=== PATIENT | female | born 1995 | race Caucasian/White ===

== ENCOUNTER 2018-01-04 00:38 | Day surgery (SDC) | payer OTHER, BC ==
[~2018-01-04] VITALS: Ht 165.1 cm; Wt 63.5 kg
[2018-01-04] VITALS (9 sets, daily range): BP systolic 72–122; BP diastolic 38–72
[~2018-01-04 00:38] MED LIST: CLON-298 PO; LEVO1IUD2 IY; LIDOCAINE/SOD BICARB 8.4% SYR ID ONE; NORMOSOL R SOLN(*) 1000 ML BAG 1,000 ML IV PRN
[2018-01-04] MEDS: NORMOSOL R SOLN(*) 1000 ML BAG 1,000 ML IV PRN ×2 (10:21→12:40)
[2018-01-04] MEDS ORDERED: LIDOCAINE/SOD BICARB 8.4% SYR ID ONE (10:40)
[2018-01-04] MEDS ORDERED: PROPOFOL EMUL(*) 10MG/ML 20 ML 40 ML ONE (12:10)
[2018-01-04] MEDS ORDERED: LIDOCAINE MPF 1% 5 ML VIAL ONE (12:10)
[2018-01-04] MEDS ORDERED: PROPOFOL EMUL(*) 10MG/ML 20 ML 20 ML ONE (12:13)
--- NOTE | 2018-01-04 12:24 | Short(Outpt) Discharge Summary ---
Discharge Summary Reason for Hosp/Final Diag: (1) RLQ abdominal pain Status: Chronic Hospital Course & Plan: Colonoscopy completed without problems. Departure Discharge to: Home, Self Care Discharge Instructions Home Meds Reported Medications Levonorgestrel 20 Mcg/Day (MIRENA 20 MCG/DAY) 1 Each Iud, EACH IY 01/01/18 Clonazepam (CLONAZEPAM) 0.5 Mg Tablet, 0.5-1 MG PO PRN, #6 TAB 12/27/17 Follow up Referrals: General Surgery - 01/11/18 @ Surgery, General with Billy Wiggins Md You have a follow up appointment scheduled with Dr. Wiggins on 01/11/18, at 12:00pm. Diet: Regular Activity: As Tolerated Special Instructions: Your colonoscopy was completed without any problems and your prep was excellent (Good Job!!). I didn't find any inflammation, polyps, cancer, or other abnormalities. I will see you back in my office next week to discuss these results and the results of the CT scan and we'll come up with a plan for further workup and treatment at that time based on the biopsy and CT results. BILLY WIGGINS MD Jan 04, 2018 12:24
== END 2018-01-04 14:05 | disposition home or self-care (01) ==
LOC: OR 00:38
PROVIDERS: ATTEND Surgery
DX: R10.31 Right lower quadrant pain (principal)
CPT/HCPCS: 00811; 45380; 88305; J2001; J2704

== ENCOUNTER → 2018-01-07 | Outpatient (CLI) | payer OTHER, BC ==
[~2018-01-07] MED LIST changes: +IOPAMIDOL 76% 75 ML INFUS BTL 75 ML ONE; -LIDOCAINE/SOD BICARB 8.4% SYR ID ONE; -NORMOSOL R SOLN(*) 1000 ML BAG 1,000 ML IV PRN
--- NOTE | 2018-01-07 15:54 | RADIOLOGY IMAGING REPORT ---
FAC[place] [facility] [place]IENT NAME: Faviola Cazares : 1995 MR: [id number] V: [id number] EXAM DATE: ORDERING PHYSICIAN: BILLY WIGGINS TECHNOLOGIST: Location: [facility] - [place] Patient: Faviola Cazares : 1995 Visit/Account:[id number] Date of Sevice: 01/07/2018 ABDOMEN/PELVIS WITH CONTRAST HISTORY: Right lower quadrant pain x2 years TECHNIQUE: Following administration of IV contrast contiguous axial images acquired through the abdom en/pelvis. Coronal and sagittal reformatting also performed. Dose Lowering Technique One of the following dose optimization techniques was utilized in the performance of this exam: Autom ated exposure control; adjustment of the mA and/or kV according to the patient's size; or use of an i terative reconstruction technique. Specific details can be referenced in the facility's radiology C T exam operational policy. CONTRAST: 75 mL Isovue-370 COMPARISON: None FINDINGS: Visualized lung bases: Negative. Hepatobiliary: Tiny subcentimeter hypodensity lateral aspect right lobe the liver may represent a cy st although is too small to characterize Spleen: Negative. Adrenals: Negative. Pancreas: Negative. Kidneys ureters or bladder: Negative. Genitalia: There is an IUD within the uterus. GI: There is a moderate amount of fecal material seen in the cecum, right-sided colon and transverse colon. The appendix is visualized and does not appear inflamed Vessels/spaces/nodes: There are numerous pelvic varicosities, left side more prominent than the righ t and dilatation of the left ovarian vein Bones/soft tissues: There is unilateral sacralization of L5 on the right Additional findings: None pertinent. IMPRESSION: Moderate amount of fecal material seen in the cecum, right-sided colon transverse colon which can be seen with constipation. The appendix is visualized does not appear inflamed There are numerous pelvic varicosities, left side more prominent than the right and dilatation of the left ovarian vein Additional chronic findings as described Report Dictated By: Brigette Buckner MD at 01/07/2018 3:33 PM Report E-Signed By: Brigette Buckner MD at 01/07/2018 3:49 PM WSN:[email or web address]
== END ==
LOC: CT 01-03 01:09
PROVIDERS: ATTEND Surgery
DX: K59.00 Constipation, unspecified (principal); Z97.5 Presence of (intrauterine) contraceptive device; I86.8 Varicose veins of other specified sites
CPT/HCPCS: 74177; Q9967

== ENCOUNTER 2018-03-01 00:15 | Day surgery (SDC) | payer BC, OTHER ==
--- NOTE | 2018-02-28 21:13 | HISTORY AND PHYSICAL ---
DATE OF ADMISSION: March 01, 2018 CHIEF COMPLAINT Pelvic pain. HISTORY OF PRESENT ILLNESS Patient is a 22-year-old zero with pelvic and perineal pain which began years ago and reports after conservative attempts to improve. Severity has been unchanged. It is aggravated by menses and intercourse. It was recommended that she have an appendectomy if no other findings were found to explain her pain. MEDICATIONS 1. Adderall 15 mg b.i.d. 2. Clonazepam 0.5 mg p.r.n. 3. Kyleena. ALLERGIES No known allergies. REVIEW OF SYSTEMS GENITOURINARY: Per HPI. GENERAL, SKIN, EYES, EARS, NOSE, MOUTH, NECK, RESPIRATORY, CARDIOVASCULAR, GASTROINTESTINAL, NEUROLOGIC, AND PSYCHIATRIC: All reviewed and noncontributory. PAST MEDICAL HISTORY 1. Chlamydia. 2. Anxiety. FAMILY HISTORY Maternal grandfather with diabetes and hypertension. Maternal grandmother with cancer of the kidney. SOCIAL HISTORY Drinks occasionally. She is a smoker. She reports that is social. She denies illicit drug use. She is an international accountant. PHYSICAL EXAMINATION VITAL SIGNS: BP 114/70, temperature 99.1, weight 148. CONSTITUTIONAL: Well-nourished, well-developed female in no distress. SKIN: Without rash or lesions. NECK: Supple, without masses. HEART: Regular rate and rhythm. LUNGS: Clear to auscultation bilaterally. ABDOMEN: Soft, nontender, nondistended. Bowel sounds positive. EXTREMITIES: Nontender. No edema. PSYCHIATRIC: Alert and oriented times three. Normal mood and affect. PELVIC: Normal external female genitalia. Well-estrogenized vaginal lining. No lesions. No bladder tenderness. IUD strings were seen. She did have uterine tenderness and left and right adnexal tenderness. ASSESSMENT AND PLAN Pelvic pain. Plan to perform diagnostic laparoscopy. MTDD
[2018-03-01] VITALS (7 sets, daily range): BP systolic 100–127; BP diastolic 58–77
[~2018-03-01] VITALS: Ht 165.1 cm; Wt 64.9 kg
[~2018-03-01 00:15] MED LIST changes: +AMPH15TA3 PO; -CLON-298 PO; +CLON-331 PO; +DOXY-181 PO; +FLU150 PO; -IOPAMIDOL 76% 75 ML INFUS BTL 75 ML ONE
[2018-03-01 06:16] LABS: PLATELET COUNT, AUTOMATED 188 K/uL (150-450)
[2018-03-01] MEDS ORDERED: NORMOSOL R SOLN(*) 1000 ML BAG 1,000 ML IV PRN (06:30)
[2018-03-01] MEDS ORDERED: AMPICILLIN/SULBACT (*) 3 GM VL 3 GM in NS(*) 0.9% 100 ML BAG 100 ML IVPB ONE (06:30)
[2018-03-01] MEDS ORDERED: HYDROmorphone HCL 2 MG TAB PO ONE ×2 (06:30→10:10)
[2018-03-01] MEDS ORDERED: FAMOTIDINE 20 MG TAB PO ONE (06:30)
[2018-03-01] MEDS ORDERED: MIDAZOLAM 2 MG/2 ML VIAL IVP PRN (06:30)
[2018-03-01] MEDS ORDERED: CELECOXIB 200 MG CAP PO ONE (06:30)
[2018-03-01] MEDS ORDERED: LIDOCAINE/SOD BICARB 8.4% SYR ID ONE (06:30)
[2018-03-01] MEDS ORDERED: METOCLOPRAMIDE 10 MG/2 ML SDV ONE (06:51)
[2018-03-01] MEDS ORDERED: PROPOFOL EMUL(*) 10MG/ML 20 ML 20 ML ONE (06:51)
[2018-03-01] MEDS ORDERED: LIDOCAINE MPF 1% 5 ML VIAL ONE (06:51)
[2018-03-01] MEDS ORDERED: ROCURONIUM BROM 10 MG/ML 10 ML ONE (06:51)
[2018-03-01] MEDS ORDERED: SUGAMMADEX SOD 200 MG/2 ML SDV ONE (06:51)
[2018-03-01] MEDS ORDERED: ONDANSETRON 4 MG/2 ML VIAL ONE (06:51)
[2018-03-01] MEDS ORDERED: DEXAMETHASONE SOD 4 MG/ML VIAL ONE (06:51)
[2018-03-01] MEDS ORDERED: fentaNYL CITR 100 MCG/2 ML AMP ONE ×2 (06:53→08:38)
[2018-03-01] MEDS ORDERED: ROPIVACAINE 0.5% 20 ML VIAL ONE (07:06)
[2018-03-01] MEDS ORDERED: ROPIVACAINE 0.2% 20 ML VIAL ONE (07:06)
--- NOTE | 2018-03-01 07:27 | Post Operative Note ---
Operative Note - [employer] Operative Day Date: Mar 01, 2018 Time: 07:40 Physicians Surgeon: RAMSEY/ROSALIE Anesthesia: CRECCA Diagnosis Pre-Op Diagnosis: PELVIC PAIN DYSPAREUNIA Post-Op Diagnosis: SAME ENDOMETRIOSIS Procedure Findings: UTERUS 6X5 CM NORMAL OVARIES ENDOMETRIOSIS RIGHT POSTERIOR CULDE SAC , LEFT UTEROSACRAL LIGAMENT AND LEFT OVARIAN FOSSA [id number] Procedure(s): LSCOPE EXCISIONAL BIOPSY OF RIGHT POSTERIOR CULDESAC LESION FULAGURATION OF ENDOMETRIOSIS DR WIGGINS APPENDECTOMY Complications: 0 Fluids Fluids: 1500 CC NR IV Estimated Blood Loss: MINIMAL Dictated Date OP Note Dictated: Mar 01, 2018 Time OP Note Dictated: 08:40 Copies to: BILLY MUSTAFA MD, JOHN MD Mar 01, 2018 07:27
[2018-03-01] MEDS ORDERED: HYDR2TAB4 PO (07:35)
[2018-03-01] MEDS ORDERED: IBUP800T37 PO (07:35)
--- NOTE | 2018-03-01 07:36 | OB/GYN Discharge Summary ---
Discharge Summary Reason for Hosp/Final Diag: (1) Status post laparoscopic procedure Hospital Course & Plan: LSCOPE EXCISIONAL BIOPSY OF ENDOMETRIOSIS LESION AND FULGURATION OF LESIONS WITH APPENDECTOMY TOLERATED WELL. Lates Vital Signs Vital Signs Date Time Temp Pulse Resp B/P (MAP) Pulse Ox O2 Delivery O2 Flow Rate FiO2 03/01/18 06:15 97.4 60 16 127/76 (93) 94 Room Air Weight (Pounds): 143 Result Diagram: 03/01/18 0610 Condition: Improved Discharge: Home, Self [facility] Meds Active Scripts Docusate Calcium (DOCUSATE CALCIUM) 240 Mg Capsule, 1 CAP PO BID, #30 CAPSULE 0 Refills Prov:BILLY RESENDIZ MD 03/01/18 Ibuprofen (IBUPROFEN) 800 Mg Tablet, 1 TAB PO Q8H, #30 TAB 0 Refills Take with food every 8 hours. Prov:BILLY RESENDIZ MD 03/01/18 Hydromorphone Hcl (HYDROMORPHONE HCL) 2 Mg Tablet, 2 MG PO Q4H for PAIN, #20 TAB 0 Refills Prov:BILLY RESENDIZ MD 03/01/18 Reported Medications Amphet Asp/Amphet/D-Amphet (ADDERALL 15 MG TABLET) 15 Mg Tablet, 15 MG PO BID 02/26/18 Fluconazole (FLUCONAZOLE) 150 Mg Tab, 150 MG PO DIRECTED, TAB 02/25/18 Levonorgestrel 20 Mcg/Day (MIRENA 20 MCG/DAY) 1 Each Iud, EACH IY 01/01/18 Clonazepam (CLONAZEPAM) 0.5 Mg Tablet, 0.5-1 MG PO PRN, #6 TAB 12/27/17 Discontinued Reported Medications Doxycycline Hyclate (DOXYCYCLINE HYCLATE) 100 Mg Capsule, 100 MG PO DIRECTED , CAPSULE 02/25/18 Amphet Asp/Amphet/D-Amphet (ADDERALL 15 MG TABLET) 15 Mg Tablet, 15 MG PO QDAY 02/25/18 [phone], Dr. Resendiz [phone] Follow up in: 2 wks PO Discharge Diet: As Tolerates Discharge Activity: Pelvic Rest Copies to: BILLY RESENDIZ MD, JOHN MD Mar 01, 2018 07:36
[2018-03-01] MEDS ORDERED: LR(*) 1000 ML BAG 1,000 ML IV ONE (08:29)
[2018-03-01] MEDS ORDERED: METOCLOPRAMIDE 10 MG/2 ML SDV IVP PRN (08:30)
[2018-03-01] MEDS ORDERED: HYDROmorphone HCL 2 MG TAB PO PRN (08:30)
[2018-03-01] MEDS ORDERED: DOCU240C67 PO (08:30)
--- NOTE | 2018-03-01 08:47 | Post Operative Progress Note ---
Post Operative Progress Note Date: Mar 01, 2018 Time: 08:32 Surgeon: Elizabet Dictation number: [id number] Machine Cage Maker: Dr. Resendiz hemp fiber taker off Anesthesia: GETA by Dr. Rodríguez Pre-Op Diagnosis: Chronic RLQ abdominal pain Post-Op Diagnosis: Endometriosis Findings: Normal appearing appendix Endometrial implants in pelvis Procedure(s): Exploratory laparoscopy with appendectomy (Elizabet) and fulgaration of endometrial implants (Astrid) Specimen Removed:(May be N/A): Appendix (Elizabet) Endometrial implants from pelvis (Astrid) Complications: None Fluids: See anesthesia record Estimated Blood Loss: Minimal Date OP Note Dictated: Mar 01, 2018 Time OP Note Dictated: 08:35 BILLY WIGGINS MD Mar 01, 2018 08:46
[2018-03-01] MEDS ORDERED: DOCUSATE CALCIUM 240 MG CAP PO SCH (09:00)
[2018-03-01] MEDS ORDERED: IBUPROFEN 800 MG TAB PO SCH (09:00)
[2018-03-01] MEDS ORDERED: ACETAMINOPHEN(*)1000 MG/100 ML 100 ML IVPB ONE (09:10)
--- NOTE | 2018-03-01 09:43 | OPERATIVE REPORT 1 ---
EVENT DATE: March 01, 2018 SURGEON: Jackson Resendiz M.D. ANESTHESIOLOGIST: Willian Rodríguez M.D. ANESTHESIA: General. ASSOCIATE PROGRAMMER: Jackson Mcneal M.D. PREOPERATIVE DIAGNOSIS 1. Pelvic pain. 2. Dyspareunia. POSTOPERATIVE DIAGNOSIS 1. Pelvic pain. 2. Dyspareunia. 3. Endometriosis. PROCEDURE PERFORMED 1. Arthroscopic excisional biopsy of the right posterior cul-de-sac lesion. 2. Fulguration of endometriosis. 3. Appendectomy by Jackson Mcneal M.D. COMPLICATIONS None. FLUIDS 1500 mL Normosol IV. ESTIMATED BLOOD LOSS Minimal. INDICATIONS The patient is a 22-year-old female with history of pelvic pain and dyspareunia. She has had workup from Dr. Mcneal and normal colonoscopy with no obvious signs for pelvic pain and has elected to proceed with appendectomy and diagnostic laparoscopy. FINDINGS Uterus 6x5 cm. Normal ovaries bilaterally. She had endometriosis of the right posterior cul-de-sac, left uterosacral ligament and left ovarian fossa. DESCRIPTION OF PROCEDURE After inform consent was obtained, the patient was taken to the operating room with IV running and placed in the supine position with general anesthesia obtained without difficulty. She was then placed in the [facility] and examined under anesthesia with the above findings. She was then prepped and draped in the usual fashion. Her bladder was drained. Side-out speculum was placed in the vagina. The cervix was grasped with a single-tooth tenaculum. The uterus sounded to 8 cm. #6 LIBERYT uterine manipulator was advanced into the uterine cavity. The remainder of the instruments were removed from the vagina. The legs were lowered. Attention was then turned to the abdomen. An infraumbilical incision was made by Dr. Mcneal and carried through to place the Carr catheter through the fascia. Once the Carr was placed, a right lateral and midline port were placed under direct visualization. After local anesthetic in the skin incision with a scalpel, advanced trocars under direct visualization. No injuries were noted at the time of entry. Normal abdominal contents were seen. The patient was placed in a leftward tilt. See Dr. Mcneal' s note for removal of the appendix. After the appendix was removed, the lesions could be identified in the posterior cul-de-sac and left ovarian fossa. A right lateral port was then placed with 0.2 Naropin infiltrated into the skin incision. Scalpel made the skin incision and the 5 mm bladeless trocar was advanced under direct visualization. Biopsy forcep was then used to remove the peritoneal lesion near the right uterosacral ligament and posterior cul-de- sac. Two biopsies were performed. The harmonic scalpel was then used to create hemostasis and fulgurate the remainder of the endometriosis in the right posterior cul-de-sac. Site specific areas were then used to use the harmonic scalpel to fulgurate the lesions in the left uterosacral as well as the left ovarian fossa. Once all the endometriosis lesions that had been identified were fulgurated, all instruments were removed from the abdomen and the suction fuel efficient aircraft designer was used to remove the air from the abdomen. All trocars were removed. Dr. Mcneal repaired his Carr closure. The skin was closed with 4- 0 Maxon and Dermabond. The LIBERTY was removed from the vagina and legs were taken out of the Yellofin stirrups. She was awakened from anesthesia and taken to the recovery room in stable condition. ZULEMA
--- NOTE | 2018-03-01 11:08 | OPERATIVE REPORT 1 ---
EVENT DATE: March 01, 2018 SURGEON: Jackson Mcneal M.D. (appendectomy) Jackson Resendiz M.D. (Refer to his operative note for details regarding his portion of surgery) ANESTHESIA: General endotracheal anesthesia. CHILDREN'S NURSERY ASSISTANT: For appendectomy, Dr. Mcneal was assisted by Dr. Resendiz. For the endometrial implant fulguration and pelvic exploration, Dr. Resendiz was assisted by Dr. Mcneal. PREOPERATIVE DIAGNOSIS Chronic right lower quadrant abdominal pain. POSTOPERATIVE DIAGNOSIS Endometriosis. PROCEDURE PERFORMED 1. Exploratory laparoscopy. 2. Laparoscopic appendectomy by Dr. Mcneal. 3. Fulguration of endometrial peritoneal implants by Dr. Resendiz. COMPLICATIONS None. CONDITION Stable. ESTIMATED BLOOD LOSS Minimal. FINDINGS The patient had several implants of endometriosis in her pelvis. Biopsies were taken by Dr. Resendiz and sent for pathology and then he fulgurated these. The appendix looked grossly normal but was removed as per our preoperative plan with the patient with her agreement so as to prevent any diagnostic uncertainty in the future after possibility of appendicitis if her right lower quadrant abdominal pain persists. INDICATIONS Patient is a 22-year-old female who has seen Dr. Resendiz for chronic right lower quadrant and pelvic pain as well as dyspareunia. He sent her to me for evaluation and we discussed performing a diagnostic laparoscopy joint case between Dr. Resendiz and I with appendectomy and whatever else needed to be done during that surgery. She ultimately elected to proceed with this. DESCRIPTION OF PROCEDURE The patient was brought to the operating room and placed supine on the operating table. General endotracheal anesthesia was administered and she was placed in Yellofin stirrups and her abdomen and genital area were prepped and draped in a sterile fashion. A time-out was completed and Dr. Resendiz placed a uterine manipulator and I anesthetized the infraumbilical skin with 0.5% ropivacaine plain and made a curvilinear smiley-face incision. I dissected through the dermis and subcutaneous fat and identified the midline fascia. I made a vertical incision in the midline fascia and then bluntly entered the peritoneum cavity with my finger. I placed 2-0 interrupted Vicryl sutures transversely through the vertical fascial defect and then inserted a 12 mm Carr type port through the wound and secured it into place with the sutures. I insufflated the abdomen to 15 mmHg and inserted a 30-degree angle 5 mm scope through the port and under direct visualization placed a suprapubic 5 mm port and a left lower quadrant 5 mm port. I turned my attention to the right lower quadrant and identified the appendix, which appeared long, thin and uninflamed. I grasped the mesoappendix and used the harmonic scalpel to divide the mesoappendix all the way up to the base of the appendix and then used the Endo- GI stapler with blue load and divided the appendix flush with the cecum. The appendix was placed in a surgical specimen retrieval bag and removed from the abdomen through the umbilical port site. At this point, Dr. Resendiz took over and performed a pelvic exploration with fulguration of peritoneal implants in the pelvis. Please refer to his note for details about this. When he was completed, I inspected the right lower quadrant and pelvis for bleeding and there was none. We then removed the instruments, desufflated the abdomen and removed the ports and then closed the midline fascia with another figure-of- eight 0 Vicryl suture and then tired all three of these down with good reapproximation. The skin of each portal site was closed with 4-0 Monocryl subcuticular suture. The skin was cleaned and dried and each of the incisions was dressed with Dermabond liquid dressing. The patient was then awakened and extubated in the operating room and transferred to the recovery room in stable condition, having tolerated the procedure without any apparent problems. ZULEMA
== END 2018-03-01 09:32 | disposition home or self-care (01) ==
LOC: OR 00:15
PROVIDERS: ATTEND Obstetrics & Gynecology
DX: N80.0 Endometriosis of uterus (principal)
CPT/HCPCS: 36415; 44970; 49321; 58662; 84703; 85025; 88304; J0131; J0295; J1100; J2001; J2405; J2704; J2765; J2795; J3010; J7050

== ENCOUNTER → 2018-04-05 | Outpatient (CLI) | payer BC ==
[~2018-04-05] MED LIST changes: +DOCU240C67 PO; +HYDR2TAB4 PO; +IBUP800T37 PO
== END ==
LOC: LAB 17:38
PROVIDERS: ATTEND Obstetrics & Gynecology
DX: O02.81 Inappropriate change in quantitative human chorionic gonadotropin (hCG) in early pregnancy (principal)
CPT/HCPCS: 36415; 84702

== ENCOUNTER → 2018-05-03 | Outpatient (CLI) | payer BC ==
--- NOTE | 2018-05-03 08:44 | RADIOLOGY IMAGING REPORT ---
FACILITY: [facility] PATIENT NAME: Faviola Cazares : 1995 MR: [id number] V: [id number] EXAM DATE: ORDERING PHYSICIAN: NITIN RIVERA TECHNOLOGIST: Location: [facility] Patient: Faviola Cazares : 1995 Visit/Account:[id number] Date of Sevice: 05/03/2018 ABDOMEN COMPLETE HISTORY: Periumbilical pain. COMPARISON: CT dated January 07, 2018. FINDINGS: Liver: Negative. Gallbladder: Unremarkable; no stones or sludge. Common duct: Normal, 4 mm diameter. Pancreas: Partially obscured by bowel, visualized aspects unremarkable. Spleen: Negative. Kidneys: Negative. Upper abdominal aorta and IVC: Patent. Ascites: None visualized. IMPRESSION: Negative exam. Unremarkable abdominal ultrasound. Report Dictated By: Mariusz Posada MD at 05/03/2018 8:39 AM Report E-Signed By: Mariusz Posada MD at 05/03/2018 8:40 AM WSN:[email or web address]
== END ==
LOC: US 03:48
PROVIDERS: ATTEND Obstetrics & Gynecology
DX: R10.33 Periumbilical pain (principal)
CPT/HCPCS: 76700

== ENCOUNTER → 2019-03-13 | Outpatient (CLI) | payer OTHER, BC ==
[~2019-03-13] MED LIST changes: +DUL20 PO; -LEVO1IUD2 IY; +LEVO1IUD3 IY; +OXYC-865 PO
--- NOTE | 2019-03-13 17:30 | RADIOLOGY IMAGING REPORT ---
FACILITY: [facility] PATIENT NAME: Faviola Cazares : 1995 MR: [id number] V: [id number] EXAM DATE: ORDERING PHYSICIAN: [facility] TECHNOLOGIST: Location: [facility] [place] Patient: Faviola Cazares : 1995 Visit/Account:[id number] Date of Sevice: 03/13/2019 PELVIC HISTORY: Pelvic pain in patient with history of hysterectomy and left nephrectomy. TECHNIQUE: There has been satisfactory transvaginal and transabdominal ultrasonic evaluation of the p clayton. COMPARISON: Pelvic ultrasound November 06, 2016. FINDINGS: Uterus: The uterus is surgically absent. Ovaries: Right - right ovary measures 3.7 x 2.5 x 2.6 cm. It contains multiple follicular cysts. There is a small amount of fluid surrounding the right ovary. Left - left ovary is surgically absent. Blood flow is documented to the right ovary. Adnexa: No masses are seen. Free pelvic fluid: There is a small amount of fluid surrounding the right ovary. There is a minimal amount of fluid in the adnexa on the left side.. Bladder: Unremarkable IMPRESSION: 1. The right ovary has normal size and contains several follicular cysts. There is a small amount o f fluid around the right ovary and in the left adnexa. 2. There are no findings of a mass in the pelvis. The uterus and left ovary are surgically absent. Report Dictated By: Zoltan Ledesma MD at 03/13/2019 5:18 PM Report E-Signed By: Zoltan Ledesma MD at 03/13/2019 5:21 PM WSN:[email or web address]
== END ==
LOC: US 03:44
DX: N83.01 Follicular cyst of right ovary (principal)
CPT/HCPCS: 76856